=== PATIENT | female | born 1980 | race Caucasian/White ===

== ENCOUNTER 2017-12-15 03:25 | Inpatient (IN) | payer BC ==
[2017-12-15 03:57] LABS: #Basophils 0.1 thou/uL (0.0-0.2); #Eosinphils 0.3 thou/uL (0.0-0.7); #Lymphocytes 2.8 thou/uL (1.20-3.40); #Monocytes 1.2 thou/uL (0.11-0.59); #Neutrophils 10.1 thou/uL (1.40-6.50); %Basophils 0.8 % (0.0-1.0); %Eosinophils 2.1 % (0.0-10.0); %Lymphocytes 19.6 % (21.0-51.0); %Neutrophils 69.5 % (42.0-75.0); Hemoglobin 15.5 g/dL (12.0-16.0); Mean Corpuscular HGB CONC 34.9 g/dL (32.0-36.0); Mean Corpuscular Hemoglobin 32.6 pg (27.0-31.0); Mean Corpuscular Volume 93.6 fl (81.0-99.0); Platelet Count 285 thou/uL (130-400); RBC Distribution Width 11.4 % (11.5-14.5); Red Blood Cell (RBC) Count 4.74 mill/uL (4.20-5.40); White Blood Cell (WBC) Count 14.5 thou/uL (4.8-10.8)
[2017-12-15 04:11] LABS: Acetaminophen Less than 6.0 mcg/mL (10.0-30.0); Alcohol Less than 10 mg/dL (Less than 10); Salicylate Less than 8.0 mg/dL (15.0-30.0)
[2017-12-15 04:16] LABS: CKMB 0.7 ng/mL (0-6.6); Troponin I Less than 0.010 ng/mL (< 0.028)
[2017-12-15 04:28] LABS: Bilirubin Negative (Negative); Blood, Urine Negative (Negative); Clarity CLEAR (Clear); Glucose, Urine (Dipstick) Negative (Negative); Leukocyte Negative (Negative); Nitrite Negative (Negative); Protein, Urine (Dipstick) Negative (Neg-Trace); Specific Gravity, Urine 1.018 (1.002-1.036); Urobilinogen 0.2 mg/dL (0.2-1.0); pH, Urine 5.5 (5.0-9.0)
[2017-12-15 04:34] LABS: ALT (SGPT) 12 U/L (8-55); AST (SGOT) 21 U/L (5-34); Albumin 3.7 g/dL (3.5-5.0); Alkaline Phosphatase 85 U/L (40-150); Anion Gap 15 mmol/L (10-20); BUN (Urea Nitrogen) 16 mg/dL (7.0-18.7); Bilirubin, Total 0.3 mg/dL (0.2-1.2); CK (CPK) 66 U/L (29-168); Calc. Creatinine Clearance 0 mL/min (70-130); Calcium 8.9 mg/dL (7.8-10.44); Carbon Dioxide 19 mmol/L (22-29); Chloride 105 mmol/L (98-107); Estimated GFR-MDRD 62; Globulin 3.8 g/dL (2.4-3.5); Glucose 98 mg/dL (70-105); Lipase 15 U/L (8-78); Potassium 4.9 mmol/L (3.5-5.1); Protein, Total 7.5 g/dL (6.0-8.3); Sodium 134 mmol/L (136-145)
[2017-12-15 04:35] LABS: Amphetamine Not Detected (NotDetected); Barbiturates Screen Not Detected (NotDetected); Benzodiazepine Screen Not Detected (NotDetected); Cocaine Metabolite Screen Not Detected (NotDetected); Medtox Control Line Valid? VALID (VALID); Medtox Reader # READER 4; Methadone Not Detected (NotDetected); Methamphetamine Not Detected (NotDetected); Opiate Screen Not Detected (NotDetected); Oxycodone Screen Not Detected (NotDetected); Phencyclidine (PCP) Not Detected (NotDetected); THC/Cannabinoid Screen Not Detected (NotDetected); Tricyclic Screen Not Detected (NotDetected)
[2017-12-15] MEDS ORDERED: Ondansetron ODT 4 MG TAB SL PRN (05:48)
[2017-12-15] MEDS ORDERED: Ondansetron HCl/PF 4 MG/2 ML Vial IVP PRN ×2 (05:48→08:03)
[2017-12-15] MEDS ORDERED: Sodium Chloride 0.9% 1,000 ML IV SCH (05:48)
[2017-12-15 06:10] VITALS: BMI 44.2
[2017-12-15] MEDS ORDERED: Milk Of Magnesia 30 ML UDCUP PO PRN (08:03)
[2017-12-15] MEDS ORDERED: Mag-Al 1200 mg/1200 mg/30 ML UDCUP PO PRN (08:03)
[2017-12-15] MEDS ORDERED: Acetaminophen 325 MG TAB PO PRN (08:03)
[2017-12-15] MEDS ORDERED: hydrALAZINE 20 MG/ML VIAL SLOW IVP PRN (08:03)
[2017-12-15] MEDS ORDERED: Ondansetron ODT 4 MG TAB PO PRN (08:03)
[2017-12-15] MEDS ORDERED: Aspirin 325 MG TAB PO SCH (09:00)
--- NOTE | 2017-12-15 09:34 | RAD ---
PORTABLE CHEST: Date: 12/15/17 HISTORY: Mental status change. FINDINGS: Lung roberts appear clear. No infiltrate or effusion. Heart and mediastinum unremarkable. IMPRESSION: No acute abnormality identified. POS: [facility]
[2017-12-15] MEDS: Aspirin 325 mg Enteric Coated Tablet PO SCH (09:38)
[2017-12-15] MEDS: Enoxaparin Sodium 40 MG/0.4 ML SYRINGE SC SCH (09:38)
[2017-12-15 09:40] LABS: Cardiac Risk 5.7 (Less than 4.5)
--- NOTE | 2017-12-15 10:24 | MRI ---
MRI BRAIN WITHOUT CONTRAST: Date: 12/15/17 HISTORY: 37-year-old female with expressive aphasia. FINDINGS: Correlation is made with the noncontrasted CT scan of same day from [facility]. There is restricted diffusion and decreased signal on ADC maps in the left insular cortex and parasyl vian region consistent with acute infarction. No hemorrhage is seen. The ventricular size is normal a nd the basilar cisterns are patent. There are a few scattered nonspecific white matter abnormalities noted on the FLAIR sequences. The visualized paranasal sinuses and mastoid air cells are well aerated . IMPRESSION: Acute Left MCA infarction. Results called over the telephone to the patient's nurse, Irish Kim, at 0823 hours. CODE CR. POS: [facility]
--- NOTE | 2017-12-15 10:51 | HP ---
PRIMARY CARE PHYSICIAN: Dr. Guy. CHIEF COMPLAINT: Difficulty finding words. HISTORY OF PRESENT ILLNESS: The history of present illness is taken from the patient who is alone in her room and unfortunately due to some difficulty with word finding, the history is quite limited. She is a transfer from [place] and according to the emergency room record, she was having some expr essive aphasia and reported difficulty that started around 1999, the night before and it has been off and on since then. She says she has difficulty finding her words. She denies any headache or dizzi ness, no weakness in either of her extremities, upper or lower extremities and she admitted that it d id start last night and that she has never had symptoms like this before and it appears as if she is still having some degree of difficulty at the moment. Otherwise, no other symptoms. REVIEW OF SYSTEMS: Constitutional: There have been no fevers, chills, no night sweats, no weight lo ss. HEENT: No headache, no dizziness, no visual changes, no sore throat, rhinorrhea, neck pain, no adenopathy. Pulmonary: No hemoptysis, no cough, no wheezing. Cardiovascular: She denies any chest pain, no shortness of breath, no PND, no orthopnea. Gastrointestinal: She denies any abdominal carmina n, no nausea, no vomiting, no change in bowels. Genitourinary: No urinary frequency, hematuria, no hesitancy. Musculoskeletal: No muscle pains, weakness or joint pains. Neurologic: As in the histo ry of present illness with no seizures. Skin and Integument: No skin changes. No rash. Psychiatri c: No symptoms of anxiety or depression. PAST MEDICAL HISTORY: Significant for anxiety and depression. PAST SURGICAL HISTORY: She has had a carpal tunnel release. SOCIAL HISTORY: She does smoke. She is a nondrinker. She is , has children. FAMILY HISTORY: No history of any heart disease, stroke or cancer. MEDICATIONS: Originally reported as none, but the nurse was able to find from external source that s he is on sertraline 100 mg daily, as well as clonazepam. PHYSICAL EXAMINATION: GENERAL: She is alert and oriented. She appears to be in no acute distress. She is well-developed and well-nourished. VITAL SIGNS: Blood pressure is 130/86, heart rate 75, respiratory rate of 20, temperature is 98.2. HEENT: Her pupils are equal, round, and reactive. Extraocular muscles are intact. Sclerae are anic teric. Throat, no erythema, no exudate. Uvula is midline. NECK: There is no adenopathy, no bruits. LUNGS: Clear to auscultation bilaterally. There is no wheezing, no rales, no rhonchi. CARDIOVASCULAR: She has a normal S1 and S2. I did not appreciate an S3 or S4. No murmurs, clicks, no rubs. ABDOMEN: Soft, it is nontender, nondistended. Positive for bowel sounds. There is no rebound, no g uarding. EXTREMITIES: There is no clubbing, cyanosis, no edema. NEUROLOGICALLY: The exam is positive for some difficulty with word finding. However, her muscle str ength is 5/5 in both upper and lower extremities and her cranial nerves are intact. SKIN AND INTEGUMENT: There are no skin changes. No rash. LABORATORY DATA AND IMAGING: Her EKG was sinus rhythm, the rate is 66. There is evidence of left ax is deviation. There is T-wave inversions laterally. Sodium was 134, potassium 4.9, chloride is 105, CO2 is 19, BUN is 16, creatinine is 1, glucose is 98. Troponin is less than 0.01. White blood cell count is 14.5, hemoglobin 15.5, hematocrit is 44.4, platelet count is 285. Urinalysis was negative. ASSESSMENT AND PLAN: This is a pleasant 37-year-old female who presents with difficulty word finding and this has been going on since last night intermittently and has been at least 8 hours since her s ymptoms began. It is possible that she may be suffering a stroke. If her symptoms start to resolve, then it is possible that it could be a transient ischemic attack or a stroke mimic. She will be barrett joe in observation in the stroke unit. We will get an MRI of the brain to help clarify. Also, we wi ll get carotid Dopplers as well as an echo and consider echo with a bubble test to assess for atrial septal defect since she is a relatively young female. Get a lipid panel and start her on aspirin the rapy as well as a statin and monitor her on telemetry. Further recommendations to follow depending o n the results of the aforementioned tests.
--- NOTE | 2017-12-15 11:05 | ULT ---
BILATERAL CAROTID DUPLEX ULTRASOUND WITH SPECTRAL ANALYSIS AND COLOR FLOW EVALUATION: Date: 12/15/17 HISTORY: Left cerebral hemisphere CVA. FINDINGS: Romero scale, color flow, Doppler evaluation, and spectral analysis of the bilateral carotid arteries i s performed with 2D imaging. No significant atherosclerotic plaque is seen within the internal carotid arteries bilaterally. There is less than 50% maximal stenosis in the bilateral internal carotid arteries according to the p eak systolic velocities and the ICA/CCA ratios. Peak systolic velocity in the right ICA is 58.8 cm/se cond, with an ICA/CCA ratio of 0.67. Peak systolic velocity in the left ICA is 68.8 cm/second, with a n ICA/CCA ratio of 0.73. Antegrade flow is demonstrated in vertebral arteries bilaterally. IMPRESSION: No hemodynamically significant stenosis in bilateral internal carotid arteries. POS: [facility]
[2017-12-15 13:24] LABS: Pregnancy Test - Urine (BHCG) Negative (Negative); Pregu Control Background? CLEAR/WHITE (CLR/WHITE); Pregu Control Bar Appear? YES (CONTROL BAR); Specific Gravity 1.012 (1.002-1.036)
[2017-12-15] MEDS ORDERED: Atorvastatin Calcium 10 MG TAB PO SCH (21:00)
--- NOTE | 2017-12-15 23:05 | CON ---
DATE OF CONSULTATION: 12/15/2017 REFERRING PROVIDER: Deshawn Red M.D. REASON FOR CONSULTATION: Aphasia. HISTORY OF PRESENT ILLNESS: Ms. Callejas is a pleasant 37-year-old female who has been con sulted for evaluation of aphasia. The patient reports that yesterday she suddenly started having dif ficulty with finding words and talking. She had felt dizzy few minutes prior to this. She was not a ble to get any words out, which prompted her to seek urgent medical attention at outside emergency ro om. She did not have any vision changes, numbness, tingling, weakness, difficulty with balance, ches t pain, palpitation, headaches, and lightheadedness. PAST MEDICAL HISTORY: Significant for anxiety and depression. PAST SURGICAL HISTORY: Significant for carpal tunnel release. SOCIAL HISTORY: She denies alcohol use or illicit drug use. She does smoke. FAMILY HISTORY: Noncontributory. CURRENT MEDICATIONS: None. ALLERGIES: Include CEFDINIR. REVIEW OF SYSTEMS: As mentioned in the HPI, otherwise negative. PHYSICAL EXAMINATION: VITAL SIGNS: Blood pressure of 130/60, pulse of 80, temperature of 98.2, respirations of 24, O2 sats of 93% on room air. GENERAL: Well-developed, well-nourished female in no apparent distress. RESPIRATORY: Clear to auscultation bilaterally. CARDIOVASCULAR: Regular rate and rhythm. NEUROLOGICAL: Mental status: The patient is awake, alert, oriented x3. Speech and language: Fluen t speech. Cranial nerves: Pupils are 3 mm and reactive. Visual roberts are intact. Extraocular mus cles are intact. No nystagmus is noted. Face is symmetric. Tongue and uvula are midline. Motor ex am showed normal tone and bulk with 5/5 strength in both upper and lower extremities. Sensory: Sens ation is intact and symmetric. Deep tendon reflexes: 2+ reflexes in both upper and lower extremitie s. Babinski: Plantar responses flexion bilaterally. Coordination intact to [id number] and finger tapping bilaterally. LABORATORY DATA: Reviewed which included CBC, CMP, lipid profile, urinalysis and urine drug screen, plasma alcohol level which is significant for WBC of 14.5. Sodium of 134, total cholesterol of 223, LDL of 156, HDL of 39. TSH of 1.7782, otherwise unremarkable. IMAGING STUDIES: MRI brain without contrast was reviewed, which showed acute left MCA distribution i schemic infarct. Carotid Doppler results were reviewed, which showed no hemodynamically significant stenosis. IMPRESSION: 1. Acute left middle cerebral artery distribution ischemic infarct. 2. Expressive aphasia, due to acute left middle cerebral artery distribution ischemic infarct. 3. Hyperlipidemia. Ms. Callejas is a pleasant 37-year-old female who presented with an acute onset of left exp ressive aphasia. She had MRI brain done, which does show acute left middle cerebral artery distribut ion ischemic infarct. At this time, I would recommend starting her on aspirin 325 mg daily for secon bailey stroke prevention. I will also recommend obtaining CT angiogram of the neck as well as transtho racic echocardiogram. If transthoracic echocardiogram is normal, then she will need transesophageal echocardiogram and a LINQ device monitor placement. I agree with starting her on Lipitor 10 mg at be dtime. I have discussed with her that she needs to discontinue smoking. Thank you for consultation.
[2017-12-16 05:45] LABS: #Basophils 0.1 thou/uL (0.0-0.2); #Eosinphils 0.2 thou/uL (0.0-0.7); #Lymphocytes 2.7 thou/uL (1.20-3.40); #Monocytes 0.7 thou/uL (0.11-0.59); #Neutrophils 4.4 thou/uL (1.40-6.50); %Basophils 1.1 % (0.0-1.0); %Eosinophils 2.3 % (0.0-10.0); %Lymphocytes 33.3 % (21.0-51.0); %Monocytes 8.5 % (0.0-10.0); %Neutrophils 54.8 % (42.0-75.0); Hemoglobin 14.7 g/dL (12.0-16.0); Mean Corpuscular HGB CONC 33.6 g/dL (32.0-36.0); Mean Corpuscular Hemoglobin 31.7 pg (27.0-31.0); Mean Corpuscular Volume 94.4 fl (81.0-99.0); Mean Platelet Volume 7.7 fL (7.4-10.4); Platelet Count 268 thou/uL (130-400); RBC Distribution Width 11.3 % (11.5-14.5); Red Blood Cell (RBC) Count 4.65 mill/uL (4.20-5.40)
[2017-12-16 05:55] LABS: Anion Gap 11 mmol/L (10-20); BUN (Urea Nitrogen) 12 mg/dL (7.0-18.7); Calc. Creatinine Clearance 191 mL/min (70-130); Calcium 8.9 mg/dL (7.8-10.44); Carbon Dioxide 23 mmol/L (22-29); Chloride 104 mmol/L (98-107); Estimated GFR-MDRD Greater than 90; Glucose 91 mg/dL (70-105); Potassium 3.8 mmol/L (3.5-5.1); Sodium 134 mmol/L (136-145)
[2017-12-16] MEDS: Aspirin 325 mg Enteric Coated Tablet PO SCH (08:47)
[2017-12-16] MEDS: Enoxaparin Sodium 40 MG/0.4 ML SYRINGE SC SCH (08:47)
[2017-12-16 14:16] VITALS: TEMP 97.6
[2017-12-16] MEDS ORDERED: Lidocaine 1% w/Epinephrine 1:100K 30 ML VIAL ONE (14:38)
--- NOTE | 2017-12-16 14:40 | PDOC.PN ---
- Subjective Encounter Start Date: 12/16/17 Encounter Start Time: 14:39 Ms. Callejas was seen today in follow-up of ischemic stroke. She is actually back to baseline with her speech. She denies any weakness, and was seen walking in the halls with her . - Objective Resuscitation Status: Resuscitation Status FULL:Full Resuscitation MAR Reviewed: Yes Vital Signs & Weight: Vital Signs (12 hours) Temp Pulse Pulse Pulse Resp BP BP 12/16/17 13:05 97.6 F 61 16 12/16/17 11:10 69 57 L 119/69 112/57 L 12/16/17 08:00 98.3 F 60 18 12/16/17 07:25 98.3 F 60 18 12/16/17 04:00 98.2 F 66 16 BP Pulse Ox 12/16/17 13:05 96/65 97 12/16/17 11:10 12/16/17 08:00 12/16/17 07:25 102/53 L 94 L 12/16/17 04:00 109/62 94 L Weight Weight 249 lb 11.2 oz I&O: 12/15/17 12/16/17 12/17/17 06:59 06:59 06:59 Output Total 350 Balance -350 Result Diagrams: 12/16/17 04:11 12/16/17 04:11 Phys Exam - Physical Examination HEENT: PERRLA Respiratory: no wheezing, no rales, no rhonchi, clear to auscultation bilateral Cardiovascular: RRR, no significant murmur, no rub Gastrointestinal: soft, non-tender, no distention, positive bowel sounds Musculoskeletal: no edema Neurological: non-focal Dx/Plan (1) Acute ischemic left MCA stroke Code(s): I63.512 - CEREB INFRC D/T UNSP OCCLS OR STENOS OF LEFT MID CEREB ART Status: Acute (2) Tobacco abuse Code(s): Z72.0 - TOBACCO USE Status: Acute (3) Tobacco abuse counseling Code(s): Z71.6 - TOBACCO ABUSE COUNSELING Status: Acute (4) Obesity, morbid, BMI 40.0-49.9 Code(s): E66.01 - MORBID (SEVERE) OBESITY DUE TO EXCESS CALORIES Status: Acute (5) Dyslipidemia Code(s): E78.5 - HYPERLIPIDEMIA, UNSPECIFIED Status: Acute - Plan * Acute Left MCA CVA- she has no residual effects now, and the expressive aphasia has resolved * Work-up is still in progress- will order the CTA as recommended by Dr. Chavarria. Echo is also pending * She has been evaluated by Cardiology- and will likely get a LINQ recorder * Smoking cessation was discussed * Diet and exercise was also discussed
--- NOTE | 2017-12-16 15:14 | CON ---
DATE OF CONSULTATION: 12/16/2017 REASON FOR CONSULTATION: Need for SHANTE and possible LINQ. HISTORY OF PRESENT ILLNESS: Ms. Callejas is a very pleasant 37-year-old white female who comes to [facility] for aphasia. She was unable to find her words and talk. She had felt dizzy a few minutes prior to this. She was admitted for evaluation of a possible stroke and an MRI confirmed acute left middle cerebral artery distribution ischemic infarct. Carotids were unremarkable, so Cardiology is being asked to do a transesophageal echocardiogram with bubble study to evaluate aorta as well as to evaluate for any intracardiac shunting. PAST MEDICAL HISTORY: Anxiety and depression. PAST SURGICAL HISTORY: Carpal tunnel release. SOCIAL HISTORY: No alcohol or drug use. She does smoke half pack a day. FAMILY HISTORY: Noncontributory. OUTPATIENT MEDICATIONS: None. ALLERGIES: CEFDINIR. REVIEW OF SYSTEMS: A 12 point review of systems was done and is all negative and listed in history o f present illness. PHYSICAL EXAMINATION: VITAL SIGNS: Temperature 97.6, pulse 61, respiration rate 16, satting 97% on room air, blood pressur e 96/65. GENERAL: Awake, alert and oriented x3, in no distress. Her speech is back to normal. HEENT: Normocephalic, atraumatic. NECK: Supple. LUNGS: Lungs are clear. CARDIOVASCULAR: S1, S2, no S3, S4, no murmurs or rubs. ABDOMEN: Soft, otherwise. EXTREMITIES: Trace edema. SKIN: Warm and dry. LABORATORY WORK: Reviewed. White count of 14, hemoglobin of 15, hematocrit 44, platelet count 285. Chemistries were normal. Globulin 3.8, albumin of 3.7, triglycerides of 142. Total course of 223, LDL 156, HDL of 39. Lipase and TSH were both normal. UA was negative. Toxicology was unremarkable. Urine drug screen negative. EKG was reviewed. Telemetry has been reviewed, normal sinus rhythm. Chest x-ray was unremarkable. Carotid Doppler was unremarkable. MRI of the brain showed findings consistent with left middle cerebral distribution infarct. ASSESSMENT: Left middle cerebral artery distribution ischemic infarct, cryptogenic in nature. PLAN: Agree with transesophageal echo to evaluate for other causes of acute cerebrovascular accident. We w ill do a SHANTE. If the SHANTE is negative, we will proceed and do a LINQ after that for cryptogenic CVA a s she may be having tachyarrhythmia provoking embolic episodes. I spoke at length with her about the risks and benefits of both these procedures and she agrees to pr oceed. Once SHANTE and if needed LINQ are placed, she should be able to go home from the cardiac perspective.
[2017-12-16 15:18] VITALS: BP 113/75
--- NOTE | 2017-12-16 15:55 | CT ---
CT ANGIOGRAM OF NECK: Date: 12/16/17 HISTORY: Left MCA distribution infarct, acute. COMPARISON: None. TECHNIQUE: CT angiogram of the neck is performed in the axial plane. Reformatted images are submitted for interp retation. FINDINGS: There is a hypodensity in the left cheek soft tissues measuring 1.0 cm, compatible with a slightly co mplex sebaceous cyst. Aerodigestive tract is patent. No mucosal abnormality. No obvious masses in the oral cavity. Midline fatty raphe of the tongue is preserved. Epiglottis has a normal caliber. Preepi glottic fat is preserved. Adequate aeration of the visualized paranasal sinuses. Symmetric attenuation of the parotid and submandibular glands. Thyroid gland is unremarkable. Symmetric attenuation of sternocleidomastoid muscles. Mildly enlarged right Level II lymph node measuring 2.1 x 0.7 cm. Additional scattered nonspecific ly mph nodes are noted. Cervical spine vertebral body height is maintained. No fracture. Upper mediastinum and lung apices ar e unremarkable. Periodontal disease involving the left and right mandibular molar teeth, incompletely evaluated. Suggestion of a partially empty sella, incompletely evaluated. CT ANGIOGRAM: There is appropriate enhancement and luminal diameter of the visualized thoracic aorta and central pu lmonary arteries. Right Carotid: The origin of the right carotid artery has appropriate enhancement and luminal diameter. The innomina te artery, common carotid artery, carotid bifurcation, and internal carotid artery have appropriate e nhancement and luminal diameter. No significant stenosis. Left Carotid: The origin of the left carotid artery has appropriate enhancement and luminal diameter. The left comm on carotid artery, carotid bifurcation, and internal carotid artery have appropriate enhancement and luminal diameter. Both vertebral artery origins are unremarkable. Both cervical vertebral arteries are patent throughou t their course in the neck. Bilateral subclavian arteries are unremarkable. IMPRESSION: 1. Note is made of a partially empty sella, of uncertain significance. 2. No significant stenosis of the carotid and vertebral arteries. POS: [facility]
[2017-12-16 16:57] LABS: PTT 28.1 SEC (22.9-36.1); Prothrombin Time 13.7 SEC (12.0-14.7)
[2017-12-16 17:00] LABS: D-Dimer Test Less than 0.27 *mcg/mL (0.27-0.43)
--- NOTE | 2017-12-17 01:40 | DIS ---
PRIMARY CARE PHYSICIAN: Dr. Guy. DATE OF ADMISSION: 12/15/2017 DATE OF DISCHARGE: 12/16/2017 DISCHARGE DISPOSITION: Home. PRIMARY DISCHARGE DIAGNOSES: 1. Acute left middle cerebral artery cerebrovascular accident. 2. Tobacco abuse. 3. Dyslipidemia. 4. Morbid obesity. DISCHARGE MEDICATIONS: Include aspirin 325 mg daily, Lipitor 10 mg at bedtime. She is to continue c lonazepam 1 mg daily and sertraline 100 mg daily. PROCEDURES DONE DURING ADMISSION: The patient had a CT scan of the brain, which was negative for any acute abnormalities. She had an MRI of the brain, which demonstrated an acute left MCA distribution infarction. The patient had bilateral carotid Dopplers, which was negative for any flow limiting di sease and also had a CT angiogram, which was negative for flow limiting disease as well. There was p lanned to get a transesophageal echo, but this will be done as an outpatient. The patient also had c holesterol levels drawn, which were elevated. She had a total cholesterol of 223 and LDL of 156 and HDL of 39. The patient had anticardiolipin antibodies, which were pending. CODE STATUS: FULL CODE. ALLERGIES: CEFDINIR. HOSPITAL COURSE: Ms. Callejas is a pleasant 37-year-old female that was brought to the emergency blas after she experienced expressive aphasia. She was initially placed in observation and an MRI was o btained and it was determined that she had an acute infarct. She was admitted and then evaluated by Neurology. She was started on aspirin and Plavix. Her blood pressure remained normal. She was coun seled on tobacco abuse and smoking cessation. Given her age at only 37, it was felt that a transesop hageal echo would be the best test for her. Dr. Steele was consulted for this and he plans to have t his done as an outpatient as we were nearing the weekend and it could not be done over the weekend. She was clinically stable and her symptoms had completely resolved luckily. Therefore, she will be d ischarged home with close outpatient followup.
--- NOTE | 2017-12-19 09:00 | PRG ---
DATE OF SERVICE: 12/16/2017 SUBJECTIVE: Ms. Callejas reports of doing well. She has noted significant improvement in her speech . She denies headache, chest pain, palpitation, numbness, tingling, weakness or difficulty with bell nce. She had a CT angiogram of the head and neck done today, which showed no significant extracrania l vascular abnormality. OBJECTIVE: VITAL SIGNS: Blood pressure of 113/75, pulse of 64, temperature of 97.6, respirations of 16 and O2 s ats of 96% on room air. GENERAL: A well-developed, well-nourished female in no apparent distress. RESPIRATORY: Clear to auscultation bilaterally. CARDIOVASCULAR: Regular rate and rhythm. NEUROLOGIC: Essentially normal with improvement in the expressive aphasia from yesterday. IMAGING STUDIES: CT angiogram of the neck was reviewed, which showed no extracranial vascular abnorm ality. IMPRESSION: 1. Left middle cerebral artery distribution ischemic infarct. 2. Expressive aphasia, due to #1. PLAN: Ms. Callejas is a pleasant 37-year-old female who presented with an expressive aphas ia. She is found to have acute left middle cerebral artery distribution ischemic infarct. Given her age, embolic phenomenon needs to be high in differential and needs to be ruled out. She has been co nsulted by Dr. Steele who is planning on to do SHANTE and LINQ device monitor as outpatient. She will c ontinue on aspirin 325 mg daily for secondary stroke prevention. I have ordered the hypercoagulation panel. She will follow up in my clinic in 4 weeks post-discharge.
[2017-12-20 12:47] LABS: Factor VIII Test 262.8 % ACTIVE (56-157)
[2017-12-20 13:22] LABS: Protein C Activity 112 % (78-152)
== END 2017-12-16 18:25 | disposition home or self-care (01) | DRG 65 ==
LOC: ERS 03:25 → 2SW 05:27 → 2SE 12-16 13:11
PROVIDERS: ADMIT Internal Medicine; ATTEND Internal Medicine
DX: I63.512 Cerebral infarction due to unspecified occlusion or stenosis of left middle cerebral artery (principal); Z68.41 Body mass index [BMI] 40.0-44.9, adult; E66.01 Morbid (severe) obesity due to excess calories; E78.5 Hyperlipidemia, unspecified; F17.210 Nicotine dependence, cigarettes, uncomplicated; Z71.3 Dietary counseling and surveillance; R47.01 Aphasia; F41.9 Anxiety disorder, unspecified; F32.9 Major depressive disorder, single episode, unspecified
CPT/HCPCS: 36415; 70498; 70551; 71045; 80048; 80053; 80061; 80306; 80307; 81003; 81025; 81240; 82553; 83090; 83690; 83880; 84443; 84484; 85025; 85240; 85300; 85303; 85305; 85307; 85379; 85598; 85610; 85730; 93005; 93306; 93880; G8978-GP-CH; G8979-GP-CH; G8980-GP-CH; G9162-GN-CH; G9163-GN-CH; J1650; J2001

== ENCOUNTER 2017-12-23 06:46 | Day surgery (SDC) | payer BC ==
[2017-12-22 09:20] VITALS: BMI 43.9
[2017-12-23] MEDS ORDERED: Fentanyl 100 MCG/2 ML VIAL ONE (08:08)
--- NOTE | 2017-12-23 22:22 | ECHO ---
DATE OF SERVICE: 12/23/2017. PREPROCEDURE DIAGNOSIS: Cryptogenic stroke. A transesophageal echo was done for evaluation of possible intracardiac shunt in the setting of crypt ogenic stroke in a young patient. She was prepped and draped. The Anesthesiology department provide d with sedation for the patient. Please see their notes for details). After adequate sedation was achieved, transesophageal probe was inserted into the mouth and into the esophagus without problems. Multiplanar views were then obtained. Left ventricle appears to be normal size, normal wall thickness. Systolic function is normal with EF estimated at 50-55%. No regional wall motion abnormalities. Left atrium is normal size. The right atrium is normal size and normal systolic function. Interatrial septum is intact by color Doppler and by agitated saline study. No evidence of any mass or thrombus in either of the major cardiac chambers. Mitral valve is structurally normal, no stenosis, mild MR. Aortic valve is structurally normal. There is no stenosis or regurgitation. Tricuspid valve structurally normal. There is mild TR. Pulmonary valve structurally normal, no stenosis or regurgitation. Thoracic aorta is normal size. No evidence of dissections or aneurysmal dilatations. There is grade II atherosclerotic disease in the more proximal descending thoracic aorta. No evidence of thrombus. CONCLUSIONS: 1. Normal LV systolic function. 2. Normal chamber dimensions with no evidence of mass or thrombus. 3. Interatrial septum is intact by agitated saline study and color Doppler. 4. Mild MR, mild TR. 5. Grade II/V atherosclerotic disease of the thoracic descending aorta.
== END 2017-12-23 11:00 | disposition home or self-care (01) ==
LOC: CCL 06:46
PROVIDERS: ATTEND Internal Medicine Cardiovascular Disease
PROC: B24BZZ4 Ultrasonography of Heart with Aorta, Transesophageal (ICD-10-PCS; principal; 2017-12-23)
DX: I63.9 Cerebral infarction, unspecified (principal); I70.0 Atherosclerosis of aorta; F17.210 Nicotine dependence, cigarettes, uncomplicated; Z79.82 Long term (current) use of aspirin; Z79.899 Other long term (current) drug therapy; Z88.8 Allergy status to other drugs, medicaments and biological substances
CPT/HCPCS: 93312; J3010